=== PATIENT | female | born 1965 | race Caucasian/White ===

== ENCOUNTER → 2020-01-15 12:58 | Outpatient (BNVA) | payer SELFPAY | PROVIDERS: Family Provider Family Medicine; PCP Family Medicine; Visit Provider Otolaryngology | DX: H93.13 Tinnitus, bilateral (principal) | CPT/HCPCS: 99203; 99214 ==

== ENCOUNTER 2020-05-24 10:07 | Outpatient (CLI) | payer OTHER, SELFPAY ==
--- NOTE | 2020-05-24 10:42 | MM_ITS ---
WS: [id number] BILATERAL DIGITAL SCREENING MAMMOGRAPHY WITH CAD CLINICAL INFORMATION: SCREEN HISTORY: Screening mammogram. No current complaints. COMPARISON: August 03, 2017 TECHNIQUE: Bilateral CC and MLO views. FINDINGS: Scattered fibroglandular densities bilaterally. No suspicious focal mass, asymmetry, calcifications, or architectural distortion. No evidence of malignancy. Lucent centered calcifications. Stable asymme tric breast tissue upper outer right breast is unchanged since 2014 MM/[place] [id number] IMPRESSION: BI-RADS: 2-Benign FOLLOW UP: 1 Year Follow-up Recommend return to annual screening mammography.
== END 2020-05-24 10:08 | disposition home or self-care (01) ==
LOC: RADSHAW 10:16
PROVIDERS: PCP Nurse Practitioner Family; Visit Provider Family Medicine
DX: Z12.31 Encounter for screening mammogram for malignant neoplasm of breast (principal)
CPT/HCPCS: 77067

== ENCOUNTER → 2021-02-13 10:04 | Outpatient (BNVA) | payer OTHER, SELFPAY | PROVIDERS: PCP Nurse Practitioner Family; Visit Provider Family Medicine | DX: R30.0 Dysuria (principal); R32 Unspecified urinary incontinence; N81.10 Cystocele, unspecified; R39.9 Unspecified symptoms and signs involving the genitourinary system; M99.01 Segmental and somatic dysfunction of cervical region | CPT/HCPCS: 81000 ==

== ENCOUNTER → 2021-03-12 13:29 | Outpatient (BNVA) | payer OTHER, SELFPAY | PROVIDERS: PCP Nurse Practitioner Family; Visit Provider Obstetrics & Gynecology | DX: R32 Unspecified urinary incontinence (principal); Z20.822 Contact with and (suspected) exposure to COVID-19 | CPT/HCPCS: 87635 ==

== ENCOUNTER 2021-03-18 11:25 | Observation (INO) | payer OTHER, SELFPAY ==
[2021-03-12 12:13] VITALS: BMI 31.6
[2021-03-12 12:35] LABS: Basophils # 0.1 10^3/uL (0.0-0.1); Basophils % 1.2 %; Eosinophils # 0.4 10^3/uL (0.0-0.8); Hematocrit 38.7 % (37.0-47.0); Hemoglobin 12.8 g/dL (11.5-15.3); Lymphocytes # 3.7 10^3/uL (0.8-4.8); Lymphocytes % 43.2 %; Mean Corpuscular HGB Conc 33.1 g/dL (30.0-36.0); Mean Corpuscular Hemoglobin 31.1 pg (28.0-34.0); Mean Corpuscular Volume 94.2 fL (81-99); Mean Platelet Volume 9.3 fL (7.4-10.4); Monocytes # 0.7 10^3/uL (0.2-0.9); Monocytes % 7.7 %; Neutrophils # 3.68 10^3/uL (1.8-7.7); Neutrophils % 42.7 %; Nucleated Red Blood Cells % 0 %; Platelet Count 317 10^3/cmm (130-400); Red Blood Count 4.11 10^6/uL (4.1-5.3); Red Cell Distribution Width 12.5 % (12.1-15.1); White Blood Count 8.6 10^3/uL (4.0-10.0)
--- NOTE | 2021-03-12 12:53 | ANES.PREANE2 ---
Pre-Anesthetic Assessment Pre-Anesthetic Assessment: Height/Weight: Height 1.65 m Weight 86.183 kg Preop Diagnosis: stress incontenence Proposed Procedure: Operation Date: 03/18/21 13:40 Proposed Procedures p Sub urethral sling (76655) n39.3(Not Applicable) - Shiloh Castillo MD Familial anesthetic complications: PONV Social: Social History: No alcohol and No tobacco Exam: Pre-Anes Outpt Exam: alert, oriented x 3, clear to auscultation bilaterally and regular rate & rhythm Airway: Cervical ROM: WNL (ACDF injury ) MP: 1 Dentition: Full Musc/skel: Musc/skel: Lower Back Pain and OA/DJD Anesthetic Plan: ASA status: 2 Anesthesia: General Risk of > 500 ml blood loss (7ml/kg in children): No PFSH Anesthesia PFSH: Medical History Cystocele affecting , antepartum Surgical History History of vaginal hysterectomy Family History Mother Cancer Lung cancer Hyperlipidemia Father Cancer Pancreatic cancer Hyperlipidemia Sister Parathyroid adenoma 2005--age 53 of onset Denies family history of Ovarian cancer Diabetes Ovarian cyst Clotting disorder Chronic kidney disease (CKD) Breast cancer Anesthesia complication Bleeding disorder Hypertension Uterine cancer Stroke Social History (Updated 03/12/21 @ 11:15 by Zunilda Holley LPN) Smoking and tobacco status: never smoked Alcohol intake: current Alcohol intake frequency: few times a week Alcohol type: wine Substance/Drug Use: never Data Anesthesia CBC & Chem 7: 03/12/21 12:20 03/12/21 12:20 Other Labs: Laboratory Results - last 48 hr 03/12/21 12:20 WBC 8.6 RBC 4.11 Hgb 12.8 Hct 38.7 MCV 94.2 MCH 31.1 MCHC 33.1 RDW 12.5 Plt Count 317 MPV 9.3 Neut % (Auto) 42.7 Lymph % (Auto) 43.2 [place] % (Auto) 7.7 Eos % (Auto) 5.0 Baso % (Auto) 1.2 Neut # (Auto) 3.68 Lymph # (Auto) 3.7 [place] # (Auto) 0.7 Eos # (Auto) 0.4 Baso # (Auto) 0.1 Nucleated RBC % (auto) 0 Nucleated RBCs # 0.0 Cardiac Studies: No Data to Display
[2021-03-12 15:35] LABS: Alanine Aminotransferase 19 U/L (0-33); Albumin Level 3.9 g/dL (3.5-5.2); Alkaline Phosphatase 90 IU/L (35-105); Anion Gap 14.1 (5-19); Aspartate Amino Transferase 21 U/L (0-32); Blood Urea Nitrogen 14 mg/dL (6-20); Calcium 8.9 mg/dL (8.5-10.5); Carbon Dioxide 26 mmol/L (22-29); Chloride 101 mmol/L (98-107); Globulin 2.6 g/dL (1.3-4.6); Glomerular Filtration Rate 73.9 mL/min (90-130); Glucose 79 mg/dL (65-115); Osmolality Calculated 283 mOsm/kg (285-295); Potassium 4.1 mmol/L (3.5-5.1); Sodium 137 mmol/L (136-145); Total Bilirubin 0.2 mg/dL (0.15-1.2); Total Protein 6.5 g/dL (6.6-8.7)
[2021-03-18] VITALS (16 sets, daily range): BP systolic 95–139; BP diastolic 61–93; PULSE 55–83; RESP 14–20; TEMP 36.3–36.6; O2SAT 95–100
[2021-03-18] MEDS: sodium chloride 0.9% 1,000 ML 30 ML IV (07:45)
--- NOTE | 2021-03-18 07:45 | P.ANESUD_ITS ---
Pre-Anesthetic Update Pre-Anesthetic Assessment: Date of Surgery/Procedure: 03/18/21 Preop Carla gnosis: stress incontenence Proposed Procedure: Operation Date: 03/18/21 08:40 Proposed Procedures p Sub urethral sling (41639) n39.3(Not Applicable) - Shiloh Castillo MD Any changes to Pre-Anesthetic Assessment?: No Last Intake: Intake Last Liquid Date 03/17/21 Last Liquid Time 20:30 Last Solid Date 03/17/21 Last Solid Time 19:00 Vitals: Temperature 98 F 03/18/21 07:35 Temperature Source Temporal Artery S can 03/18/21 07:35 Pulse Rate 74 03/18/21 07:35 Respiratory Rate 16 03/18/21 07:35 Blood Pressure 139/93 03/18/21 07:35 Blood Pressure Giovana n 108 03/18/21 07:35 Pulse Oximetry 99 03/18/21 07:35 Oxygen Delivery Me thod 03/18/21 07:35 Exam: Pre-Anes Outpt Exam: alert, oriented x 3, clear to auscultation bilaterally and regular rate & rhythm Cardiac Studies: No Data to Display
[2021-03-18] MEDS: scopolamine 1.5 Patch 1 PATCH TRANSDERMA (07:46)
[2021-03-18] MEDS: acetaminophen 1,000 MG/100 ML PIGGYBACK 400 MG IV (07:47)
[2021-03-18] MEDS: gabapentin 300 mg Capsule PO (07:49)
[2021-03-18] MEDS: ketorolac 30 mg/mL INJ IVP ×2 (07:49→17:28)
--- NOTE | 2021-03-18 08:53 | W.PM.OPSUD ---
Surgery/Procedure H&P Update DATE OF PROCEDURE: March 18, 2021 DATE H&P PERFORMED: 03/12/21 H&P UPDATE INFORMATION: I have reviewed H&P completed within last 30 days, I have examined patient prior to procedure and No changes to prior documentation PREOP DIAGNOSIS: stress incontenence PLANNED PROCEDURE: Operation Date: 03/18/21 08:40 Proposed Procedures p Sub urethral sling (30655) n39.3(Not Applicable) - Shiloh Castillo MD
--- NOTE | 2021-03-18 11:06 | P.OP_ITS ---
Operative Report Date of procedure: March 18, 2021 Pre-op Diagnosis: stress incontenence Post-op diagnosis: same Procedure Done: Sub urethral sling Implants: sub-urethral sling Pathology: none sent Anesthesia: General (LMA) Estimated blood loss (mL): 150 IV fluids (mL): 800 Urine output (mL): 400 Complications: post op, sub urethral bleeding Findings: normal bladder and urethra with bilateral spill of indigo carmine Condition: stable Disposition: PACU Procedure: The patient was taken to the operating room where general anesthesia was administered via LMA and found to be adequate. She was prepped and draped in the normal sterile fashion in the dorsal lithotomy position in [facility]. A altamirano catheter was placed. A weighted speculum was placed into the vagina and the [place] retractor placed. An Allis clamp was placed approximately 2 cm below the urethra and another placed approximately 3 cm distal from that. An incision was made between the 2. The tissue was sharply dissected along the pubic ramus bilaterally. The sling was placed on the left first by going through the incision and attaching the sling in the obturator space. The right side was performed in a similar fashion, placing the applicator through the incision and attaching to the obturator space. There was bleeding from the incision. The incision was repaired with 2-0 Vicryl in a running locked fashion. The Altamirano catheter was removed and the cystoscope advanced into the bladder. Th ere was a small amount of blood in the urethra but none in the bladder. Indigo carmine was given and bilateral spill of blue fluid was noted from both ureteral orifices. There was no mesh noted to be in the bladder. The bleeding continued from the urethra and a small trickle. It was coming from the right. I spoke with Dr. Ramirez who recommended using a larger [place] catheter and keeping the patient overnight. This should tamponade the area and stop the bleeding. Vaginal packing was placed as well to aid in this. The patient tolerated the procedure well. Sponge lap and needle counts were correct x3. She was taken to the recovery room in stable condition.
[2021-03-18] MEDS: dextrose 5%-lactated ringers 1,000 ML 125 ML IV ×2 (14:11→22:16)
[2021-03-18] MEDS: HYDROcodone-acetaminophen 5-325 mg Tablet PO (14:17)
--- NOTE | 2021-03-18 14:52 | ANE.PACU2 ---
Inpatient post-anesthesia follow up: Airway intact: Yes Vital signs: Temperature 97.5 F Pulse Rate 83 Respiratory Rate 15 Blood Pressure 116/73 Pulse Oximetry 96 Oxygen Delivery Me thod Room Air Oxygen Flow Rate 6 Fraction of Inspir ed Oxygen Hydration adequate: Yes Nausea and vomiting: No Pain level: 3 Mental status: Baseline
[2021-03-18] MEDS: docusate sodium 100 mg Capsule PO (17:28)
[2021-03-19 04:00] VITALS: BP 99/67; PULSE 84; RESP 16; O2SAT 97
[2021-03-19 04:38] LABS: Hematocrit 34.5 % (37.0-47.0); Hemoglobin 11.2 g/dL (11.5-15.3); Mean Corpuscular HGB Conc 32.5 g/dL (30.0-36.0); Mean Corpuscular Hemoglobin 31.8 pg (28.0-34.0); Mean Platelet Volume 9.5 fL (7.4-10.4); Platelet Count 253 10^3/cmm (130-400); Red Blood Count 3.52 10^6/uL (4.1-5.3); Red Cell Distribution Width 12.6 % (12.1-15.1); White Blood Count 15.4 10^3/uL (4.0-10.0)
--- NOTE | 2021-03-19 08:37 | PM.DCS ---
Discharge Providers Date of Admission: 03/18/21 11:25 Date of Discharge: March 19, 2021 Attending Provider at Admission: Shiloh Castillo MD Attending Provider at Discharge: Shiloh Castillo MD Primary Care Provider: Tonia Carter Diagnoses at Discharge Discharge Diagnosis (1) Postoperative state: Status: Acute Reason for Visit Reason for Visit: Sub urethral sling (26587) Hospital Course Hospital Course The patient was admitted for surgery. She had a suburethral sling placed and had some bleeding from the urethral meatus. She was kept overnight with a 24 italian catheter in and vaginal packing to tamponade the area. On the morning of discharge, she was doing well. She was able to void twice with only small amount of PVR. Her urine was pink with no palmira blood. She was ready for discharge. Physical Exam Narrative: EXAM NARRATIVE: The patient is doing well this am. No complaints of pain. No complaints of vaginal bleeding. Packing and altamirano catheter have been removed. The patient is tolerating a regular diet and ambulating well. Const: COMMON NORMALS: no acute distress, average body habitus, patient oriented x3, no limitations, healthy appearing, alert and well nourished GENERAL APPEARANCE: cooperative, comfortable, well kempt and well developed ORIENTATION/CONSCIOUSNESS: Yes awake, Yes oriented to person, Yes oriented to place and Yes oriented to time Neck/C-Spine: COMMON NORMALS: full ROM and supple Resp: COMMON NORMALS: normal respiratory effort EFFORT & INSPECTION: Yes able to speak in complete sentences GI: COMMON NORMALS: Soft to palpation and non-tender PALPATION: Yes Soft to palpation Extremity: COMMON NORMALS: no clubbing, cyanosis or edema Neuro: COMMON NORMALS: patient oriented x3 SENSORIUM/ORIENTATION: Yes alert, Yes oriented to person, Yes oriented to place and Yes oriented to time Psych: APPEARANCE: Yes well kempt Urinary Catheter Management^: Altamirano: Cath Placed During This Visit: yes, but has since been removed by the nurse Reason for Continuing Indwelling Catheter: Decision to DC Catheter Urinary Catheter Date of Insertion: 03/18/21 Urinary Catheter Time of Insertion: 09:55 Date Urinary Catheter Removed: 03/19/21 Time Urinary Catheter Discontinued: 06:10 Discharge Data Data Completed and Pending: Pending at discharge Category Date Time Status ES surgery / GI i mages Routine Exams 03/18/21 09:24 Ordered Labs from last 24 hours 03/19/21 04:30 WBC 15.4 H RBC 3.52 L Hgb 11.2 L Hct 34.5 L MCV 98.0 MCH 31.8 MCHC 32.5 RDW 12.6 Plt Count 253 MPV 9.5 Vitals: Last Vital Signs Temp 97.5 F L 03/18/21 17:35 Pulse 84 03/19/21 04:00 Resp 16 03/19/21 04:00 BP 99/67 03/19/21 04:00 Pulse Ox 97 03/19/21 04:00 Discharge Plan Discharge Patient Disposition: Home Condition: Stable Prescriptions: Continued fluticasone propionate [Flonase Allergy Relief] 50 mcg/actuation spray,suspension 2 spray INTRANASAL DAILY RF: 0 B Complex Plus Vitamin C [id number] mg capsule 1 cap PO DAILY RF: 0 magnesium 200 mg tablet 200 mg PO DAILY RF: 0 fexofenadine 180 mg tablet 180 mg PO DAILY RF: 0 Adult 50 Plus Probiotic 4 billion cell capsule 4,000 mmu cells PO DAILY RF: 0 cholecalciferol (vitamin D3) 10 mcg (400 unit) capsule 10,000 unit PO DAILY RF: 0 multivitamin Tablet 1 tab PO DAILY RF: 0 cranberry 400 mg capsule 400 mg PO DAILY RF: 0 biotin 10 mg tablet 10 mg PO DAILY RF: 0 tolnaftate [Tolcylen] 1 % solution 2 drp topical BID RF: 0 estradiol 0.1 mg/24 hr patch semiweekly 1 patch topical .TWICE A WEEK Qty: 24 RF: 3 rizatriptan 10 mg tablet 10 mg PO Q2H PRN (Reason: migraine headache) Qty: 48 RF: 11 Discharge Orders: Discharge Order (Routine); Ordered 03/19/21 Ordered By: Shiloh Castillo Patient Instructions: Opioid Safety Discharge Attestations Time Spent in Discharge Care*: less than 30 min Quality Metrics Clinical Quality Measures During this hospital stay, did patient experience: None Coding Level of Care Code Acute Chg FW DC note Diagnoses Postoperative state Z98.890
[2021-03-19 08:45] VITALS: BP 133/83; PULSE 61; RESP 17; TEMP 36.7; O2SAT 98
[2021-03-19] MEDS: acetaminophen 325 mg Tablet 650 MG PO (08:49)
[2021-03-19] MEDS: docusate sodium 100 mg Capsule PO (08:49)
== END 2021-03-19 09:19 | disposition home or self-care (01) ==
LOC: OBGYN 11:25
PROVIDERS: Admitting Provider Obstetrics & Gynecology; PCP Nurse Practitioner Family; Visit Provider Obstetrics & Gynecology
PROC: (CPT 57288; principal; 2021-03-18 08:40)
DX: N39.3 Stress incontinence (female) (male) (principal)
CPT/HCPCS: 57288; 36415; 51798; 80053; 85025; 85027; 96365; 96374; C1713; G0378; J0690; J1100; J1200; J1885; J2405; J2704; J3010; J3490; J7030

== ENCOUNTER 2021-07-02 08:13 | Outpatient (CLI) | payer OTHER, SELFPAY ==
--- NOTE | 2021-07-02 08:21 | MM_ITS ---
WS: [id number] BILATERAL DIGITAL SCREENING MAMMOGRAPHY WITH CAD CLINICAL INFORMATION: SCREENING HISTORY: Screening mammogram. No current complaints. COMPARISON: May 24, 2020 TECHNIQUE: Bilateral CC and MLO views. FINDINGS: Scattered fibroglandular densities bilaterally. Punctate and lucent centered calcifications. No suspi cious focal mass, asymmetry, calcifications, or architectural distortion. No evidence of malignancy. MM/[place] [id number] IMPRESSION: BI-RADS: 2-Benign FOLLOW UP: 1 Year Follow-up Recommend return to annual screening mammography.
== END 2021-07-02 08:14 | disposition home or self-care (01) ==
LOC: RADSHAW 08:16
PROVIDERS: PCP Family Medicine; Visit Provider Family Medicine
DX: Z12.31 Encounter for screening mammogram for malignant neoplasm of breast (principal)
CPT/HCPCS: 77067

== ENCOUNTER → 2021-09-10 10:37 | Outpatient (BNVA) | payer OTHER, SELFPAY | PROVIDERS: PCP Family Medicine; Visit Provider Family Medicine | DX: M16.12 Unilateral primary osteoarthritis, left hip (principal); R35.0 Frequency of micturition | CPT/HCPCS: 73502; 81000 ==

== ENCOUNTER 2022-02-05 08:18 | Outpatient (CLI) | payer OTHER, SELFPAY ==
--- NOTE | 2022-02-05 08:45 | MR_ITS ---
WS: [id number] MRA ANGIOGRAPHY [place] OF [place] HISTORY: I72.9 - Aneurysm of unspecified site COMPARISON: None available. TECHNIQUE: 3-D MR angiography is performed of the [place]. All images are reviewed including source images. Distal RIGHT vertebral artery is dominant. LEFT vertebral artery small caliber but patent. Basilar ar nixon is normal caliber. No aneurysm at the basilar tip. Posterior cerebral arteries are normal calibe r. No aneurysm at the posterior communicating arteries or posterior cerebral arteries. Slightly small caliber intracranial carotid arteries are patent. Distal carotid arteries are intact. Middle cerebral arteries are patent bilaterally. Normal caliber. No aneurysms are identified. The nod ule noted along the RIGHT sylvian fissure on the recent MRI corresponds to a prominent loop of the RI GHT M2 segment but no aneurysm. LEFT middle cerebral arteries normal caliber. Normal anterior cerebra l arteries. No aneurysm at the anterior communicating artery. MR/MR angio head wo con [id number] IMPRESSION: 1. No cerebral aneurysm is identified on today's examination. No prior studies for comparison. If prior studies demonstrating an aneurysm become available a comparison can be performed. 2. Nodule noted within the RIGHT sylvian fissure corresponds to a prominent lo op of RIGHT M2 cerebral artery. No aneurysm is identified at this location.
== END 2022-02-05 08:19 | disposition home or self-care (01) ==
LOC: RAD 08:19
PROVIDERS: PCP Family Medicine; Visit Provider Specialist
DX: I72.9 Aneurysm of unspecified site (principal)
CPT/HCPCS: 70544

== ENCOUNTER 2022-02-05 08:18 | Outpatient (CLI) | payer OTHER, SELFPAY ==
--- NOTE | 2022-02-05 09:00 | MR_ITS ---
WS: [id number] MRI BRAIN WITHOUT CONTRAST HISTORY: I72.9 - Aneurysm of unspecified site COMPARISON: None available. TECHNIQUE: Diffusion imaging, multiplanar T1, T2 and FLAIR imaging obtained. No evidence for acute infarct or hemorrhage. Wynne-white matter differentiation is normal. No remote or acute infarcts are volume loss. Nodular area involving the posterior LEFT cerebellum is of increased signal on the T2 sequence but decreased on T1 and FLAIR sequence. This may be a prior in farct. There is an additional well-circumscribed 6 mm low signal nodule along the RIGHT sylvian fissu re which follows fluid signal on all sequences. Ventricles and extra-axial spaces are normal. No inferior displacement of cerebellar tonsils. No signal abnormality on the dural venous sinuses. No flow voids in the [place]. Paranasal sinuses: Clear. Mastoid air cells: Normal. Calvarium and scalp: Intact. MR/MR head wo con* [id number] IMPRESSION: 1. No acute infarct or hemorrhage. 2. Well-circumscribed 6 mm nodule in the RIGHT sylvian fissure. Cerebral MR an giogram performed on the same day did not demonstrate an aneurysm at this locat ion. This may be prior lacunar infarct versus perivascular space. 3. Focal nodules in the LEFT cerebellum. May be from a prior infarct. Cannot c ompletely exclude vascular malformation. MRI brain with contrast would be helpf ul. If there are prior imaging studies that demonstrate an aneurysm a review can be performed if these become available.
== END 2022-02-05 08:19 | disposition home or self-care (01) ==
LOC: RAD 08:19
PROVIDERS: PCP Family Medicine; Visit Provider Specialist
DX: I72.9 Aneurysm of unspecified site (principal); R22.0 Localized swelling, mass and lump, head
CPT/HCPCS: 70551

== ENCOUNTER → 2022-02-19 10:57 | Outpatient (BNVA) | payer OTHER, SELFPAY | PROVIDERS: PCP Family Medicine; Visit Provider Family Medicine | DX: I67.1 Cerebral aneurysm, nonruptured (principal); G43.711 Chronic migraine without aura, intractable, with status migrainosus; M79.672 Pain in left foot | CPT/HCPCS: 80053; 82310; 84439; 84443; 85025 ==

== ENCOUNTER → 2022-04-29 10:11 | Outpatient (BNVA) | payer OTHER, SELFPAY | PROVIDERS: PCP Family Medicine; Referring Provider Family Medicine; Visit Provider Podiatrist Foot & Ankle Surgery | DX: M79.672 Pain in left foot (principal); M19.072 Primary osteoarthritis, left ankle and foot; Z87.81 Personal history of (healed) traumatic fracture | CPT/HCPCS: 73630 ==

== ENCOUNTER 2022-06-19 06:46 | Day surgery (SDC) | payer OTHER, SELFPAY ==
[2022-06-18 10:25] VITALS: BMI 31.1
[2022-06-19] VITALS (10 sets, daily range): BP systolic 113–141; BP diastolic 72–91; PULSE 67–79; RESP 14–18; TEMP 36.1–36.9; O2SAT 91–97
--- NOTE | 2022-06-19 | SCC_ITS ---
Procedure done: Bunionectomy, Ella osteotomy of the second metatarsal and second hammertoe correction of the left foot. CPT codes: 98384, 35338, 52707 2 seconds of fluoroscopic guidance, for a cumulative dose of 0.05 mGy, was provided to Dr. Wright by the radiology department. C-arm images of the LEFT foot were saved for the patient's permanent record. [facility]
--- NOTE | 2022-06-19 06:12 | P.HPUD_ITS ---
Surgery/Procedure H&P Update DATE OF PROCEDURE: June 19, 2022 DATE H&P PERFORMED: 06/19/22 CHANGES TO PREVIOUS DOCUMENTATION: none PREOP DIAGNOSIS: stress incontenence PRIMARY INDICATION FOR PROCEDURE: Metatarsalgia, predislocation syndrome left second metatarsal phalangeal joint, painful bunion PLANNED PROCEDURE: Operation Date: 06/19/22 08:20 Proposed Procedures p Bunionectomy, Ella osteotomy of the second metatarsal and second hammertoe correction of the left foot. CPT codes: 01748, 39813, 282 85,M21.612,M25.872(Left) - Levar Wright DPM s Ella Osteotomy(Left) - Levar Wright DPM s Hammertoe Correction(Left) - Levar Wright DPM
--- NOTE | 2022-06-19 06:13 | PM.OPSURHP ---
Providers/Chief Complaint Primary Care Provider: Jeremiah Yanez DO History of Present Illness Dee Patton is a 57 year old female patient presenting to clinic for evaluation of left foot pain.? She locates the burning pain across the top of her metatarsals on left foot.? She has a painful bunion and duke hammertoe of the second digit that is painful on a daily basis. She has been experiencing the burning discomfort for almost a year. She denies any trauma or injury to left foot.? She states that she has concerns of her why her second toe is hugging her great toe on left foot.? She states that she has tried taping her second and third together without any success. She states that she has not noticed what causes her foot to hurt more on than other days.? Has tried different styles of shoe, strapping and padding to the foot as well as anti-inflammatories without improvement. Patient denies any subjective nausea, vomiting, fever, chills, shortness of breath or chest pain. Review of Systems General: Reports: 10 or more systems reviewed and unremarkable except in HPI and below Const: Denies: fever(s) or chills Eyes: Denies: change in vision Card: Denies: chest pain or palpitations Resp: Denies: dyspnea or productive cough GI: Denies: abdominal pain, nausea or vomiting : Denies: flank pain Musc: Reports: extremity pain, joint pain, joint stiffness, limited range of motion and deformity Skin/Breast: Reports: skin tenderness; Denies: rash Neuro: Reports: difficulty walking; Denies: numbness in extremities, sensory changes or frequent falls Psych: Denies: suicidal ideation Silvino/Lymph: Denies: easy bruising Medications/Allergies Home Medications Medication Instructions Recorded Confirmed Last Taken Type fluticasone propionate 50 2 spray intranasal DAILY 01/15/20 06/18/22 03/17/21 History mcg/actuation nasal spray,suspension (Flonase Allergy Relief) magnesium 200 mg tablet 200 mg PO DAILY 01/15/20 06/18/22 03/17/21 History biotin 10 mg tablet 10 mg PO DAILY 12/19/20 06/18/22 03/17/21 History cholecalciferol (vitamin D3) 10 10,000 unit PO DAILY 12/19/20 06/18/22 03/17/21 History mcg (400 unit) capsule cranberry 400 mg capsule 400 mg PO DAILY 12/19/20 06/18/22 03/17/21 History lactobacillus combination no.9 4 4,000 mmu cells PO DAILY 12/19/20 06/18/22 03/17/21 History billion cell capsule (Adult 50 Plus Probiotic) multivitamin 1 tab PO DAILY 12/19/20 06/18/22 03/17/21 History rizatriptan 10 mg tablet 10 mg PO Q2H PRN migraine headache 01/12/22 06/18/22 Unknown Rx #48 tabs albuterol sulfate 90 mcg/actuation 2 inh inhalation Q4H PRN shortness 03/31/22 06/18/22 Unknown Rx breath activated powder inhaler of breath or wheezing #1 ea inhalational spacing device #1 ea 03/31/22 06/18/22 Unknown Rx (Aerochamber MV) estradiol 0.1 mg/24 hr semiweekly 1 patch topical .TWICE A WEEK #24 04/30/22 06/18/22 Unknown Rx transdermal patch patches fexofenadine 180 mg tablet 180 mg PO DAILY 06/18/22 06/18/22 Unknown History galcanezumab-gnlm 120 mg/mL 240 mg SUBCUT DIRECTED 06/18/22 06/18/22 06/05/22 History subcutaneous pen injector (Emgality Pen) Allergies Allergy/AdvReac Type Severity Reaction Status Date / Time Sulfa (Sulfonamide Allergy fever, Verified 06/18/22 10:23 Antibiotics) vomiting topiramate Allergy red spots, Verified 06/18/22 10:23 hives PFSH PFSH: Medical History (Updated 06/19/22 @ 06:16 by Levar Wright DPM) Aneurysm Arthritis Cystocele affecting , antepartum Degenerative disc disease, cervical FH: cholecystectomy (~2003) Fusion of spine of cervical region Surgical History H/O hernia repair (~1990) H/O thumb surgery right- 2018 left 2019 History of foot surgery 2015- left foot 2019- right foot History of hysteroscopy History of mandibular surgery (~2003) History of vaginal hysterectomy Hx of neck surgery (~2019) Joint replaced BILATERAL THUMB Family History (Updated 04/30/22 @ 08:25 by Ariela Bruce) Mother Cancer Lung cancer Hyperlipidemia Father Cancer Pancreatic cancer Hyperlipidemia Sister Thyroid disease Denies family history of Ovarian cancer Diabetes Breast cancer Hypertension Uterine cancer Stroke Social History Smoking and tobacco status: never smoked Alcohol intake: current Alcohol intake frequency: few times a week Alcohol type: wine Dietary Habits: Caffeine: Yes Caffeine intake frequency: coffee Number of coffee servings: 1, tea and other (soda) Number of other caffeine servings: 1 Vital Signs Weight: Weight last 48 hrs Weight 193 lb Weight 193 lb Physical Exam Narrative: EXAM NARRATIVE: ?Patient is alert and oriented ?3 and in no acute distress.? The following is a focused bilateral lower extremity exam. VASCULAR: Dorsalis pedis and posterior tibial arteries palpable +2.? Capillary refill time less than 3 seconds to the distal hallux bilaterally. Calf is supple and nontender proximally and distally.? No pedal edema appreciated.? Pedal hair growth present. NEUROLOGICAL: Epicritic and protopathic sensations grossly intact to the lower extremities.? +2 Achilles tendon reflex noted bilaterally.? Negative Tinel sign upon percussion of lower extremity nerves. DERMATOLOGICAL: Lower extremity skin is well-hydrated, normal texture and turgor.? There are no open sores or lesions noted to the lower extremities.? No erythema or ecchymosis present to the bilateral legs and feet. MUSCULOSKELETAL: Left second toe deviates medially and is slightly dorsiflexed at the metatarsophalangeal joint this is reducible.? Bunion deformity to the left great toe that is not track bound. No palpable mass along the course of the plantar fascia appreciated.? Pain to palpation at the left bunion deformity at the medial aspect of the first metatarsal phalangeal joint at the osseous prominence. Pain at the left second metatarsal phalangeal joint both dorsally and plantarly, plantarly is more painful. Deviation medially of the left second toe and mild hammertoe contracture in the sagittal plane with pain with anterior drawer of the second toe. No pain to palpation along the course of the bilateral Achilles tendon.? No pain to palpation along the course posterior tibial tendon or peroneal tendons.? No pain with catv-eu-lucs compression of calcaneus, bilaterally.? Muscle strength is 5/5 in all 3 cardinal planes pain-free without guarding to the foot and ankle, bilaterally.? CARDIOVASCULAR: S1, S2, normal rate, normal rhythm. Dorsalis pedis and posterior tibial arteries palpable. LUNGS: Clear to auscltation, no use of acessory muscles, no crackles or wheezes. 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 Has failed conservative measures consisting of strapping, splinting, shoe gear modification, activity modification and anti-inflammatories. Pain is described as sharp stabbing and occurs on a daily basis it is now affecting her everyday quality of life would like to discuss surgical intervention. Recommended bunionectomy with Ella osteotomy of the second metatarsal, plantar plate repair and second hammertoe correction. Risks include but are not limited to pain, bleeding, numbness, infection, hardware failure, delayed union, malunion, nonunion, hallux varus, recurrence of deformity, failure to correct deformity, chronic swelling, chronic numbness, bruising, surgical site dehiscence, suture abscess, sesamoiditis, altered mechanics, need for further surgical intervention, deep vein thrombosis, heart attack, stroke and . Patient would like to schedule outpatient surgery on 06/19/2022. 06/19/2022 left foot bunionectomy, second metatarsal Ella osteotomy, second MTPJ plantar plate repair and hammertoe correction of the second, all left foot. 120 minutes, gurney, supine. 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
--- NOTE | 2022-06-19 06:23 | XR_ITS ---
WS: [id number] Left foot, 3 views, 06/19/2022 Clinical Data: Postoperative Comparison: Left foot, 04/29/2022. Findings: The patient has had osteotomies of the distal left first and second metatarsals. Orthopedic screws ar e in the surgical locations. There is a healed fracture of the distal left fifth metatarsal. XR/XR foot LT min 3V* [id number] Impression: Osteotomies of the left first and second metatarsals.
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
[2022-06-19] MEDS: CELEcoxib 200 mg Capsule 400 MG PO (07:15)
[2022-06-19] MEDS: gabapentin 300 mg Capsule PO (07:15)
--- NOTE | 2022-06-19 07:24 | P.ANESASSM_ITS ---
Pre-Anesthetic Assessment Height/Weight: Height 1.68 m Weight 87.543 kg Temp Pulse Resp BP Pulse Ox O2 Del Method 97.2 F L 72 16 141/86 97 06/19/22 07:14 06/19/22 07:14 06/19/22 07:14 06/19/22 07:14 06/19/22 07:14 06/19/22 07:14 Preop Diagnosis: Bunion, second hammertoe, second plantar plate insufficiency, all left foot Operation Date: 06/19/22 08:20 Proposed Procedures p Bunionectomy, Ella osteotomy of the second metatarsal and second hammertoe correction of the left foot. CPT codes: 81054, 11869, 59737 ,M21.612,M25.872(Left) - JU Hubbard Ella Osteotomy(Left) - JU Hubbard Hammertoe Correction(Left) - Levar Wright DPM Familial anesthetic complications: None Was Beta Doreen taken within 24 hours: N/A Was Clonidine taken within 24 hours: N/A Last intake: Intake Last Liquid Date 06/18/22 Last Liquid Time 21:00 Last Solid Date 06/18/22 Last Solid Time 21:00 Social No alcohol and No tobacco Exam alert, oriented x 3, clear to auscultation bilaterally and regular rate & rhythm Airway Submandibular: within normal limits Cervical ROM: within normal limits Mallampati: Class II Dentition: full Metabolic Morbid Obesity Neuropsych Headache Anesthetic Plan ASA status: 2 Anesthesia: MAC Medications/Allergies Home Medications Medication Instructions Recorded Confirmed Last Taken Type fluticasone propionate 50 2 spray intranasal DAILY 01/15/20 06/19/22 06/19/22 06:00 History mcg/actuation nasal spray,suspension (Flonase Allergy Relief) magnesium 200 mg tablet 200 mg PO DAILY 01/15/20 06/18/22 03/17/21 History biotin 10 mg tablet 10 mg PO DAILY 12/19/20 06/18/22 03/17/21 History cholecalciferol (vitamin D3) 10 10,000 unit PO DAILY 12/19/20 06/18/22 03/17/21 History mcg (400 unit) capsule cranberry 400 mg capsule 400 mg PO DAILY 12/19/20 06/18/22 03/17/21 History lactobacillus combination no.9 4 4,000 mmu cells PO DAILY 12/19/20 06/18/22 03/17/21 History billion cell capsule (Adult 50 Plus Probiotic) multivitamin 1 tab PO DAILY 12/19/20 06/18/22 03/17/21 History rizatriptan 10 mg tablet 10 mg PO Q2H PRN migraine headache 01/12/22 06/18/22 Unknown Rx #48 tabs albuterol sulfate 90 mcg/actuation 2 inh inhalation Q4H PRN shortness 03/31/22 06/18/22 Unknown Rx breath activated powder inhaler of breath or wheezing #1 ea inhalational spacing device #1 ea 03/31/22 06/18/22 Unknown Rx (Aerochamber MV) estradiol 0.1 mg/24 hr semiweekly 1 patch topical .TWICE A WEEK #24 04/30/22 06/18/22 Unknown Rx transdermal patch patches fexofenadine 180 mg tablet 180 mg PO DAILY 06/18/22 06/18/22 Unknown History galcanezumab-gnlm 120 mg/mL 240 mg SUBCUT DIRECTED 06/18/22 06/18/22 06/05/22 History subcutaneous pen injector (Emgality Pen) hydrocodone 10 mg-acetaminophen 1 tab PO Q6H PRN pain 7 days #28 06/19/22 Unknown Rx 325 mg tablet tabs Allergies Allergy/AdvReac Type Severity Reaction Status Date / Time Sulfa (Sulfonamide Allergy fever, Verified 06/18/22 10:23 Antibiotics) vomiting topiramate Allergy red spots, Verified 06/18/22 10:23 hives [facility] Anesthesia Medical History (Updated 06/19/22 @ 06:16 by Levar Wright DPM) Aneurysm Arthritis Cystocele affecting , antepartum Degenerative disc disease, cervical FH: cholecystectomy (~2003) Fusion of spine of cervical region Surgical History (Updated 06/19/22 @ 06:21 by Levar Wright DPM) H/O hernia repair (~1990) H/O thumb surgery right- 2018 left 2019 History of foot surgery 2015- left foot 2019- right foot History of hysteroscopy History of mandibular surgery (~2003) History of vaginal hysterectomy Hx of neck surgery (~2019) Joint replaced BILATERAL THUMB Family History (Updated 04/30/22 @ 08:25 by Ariela Bruce) Mother Cancer Lung cancer Hyperlipidemia Father Cancer Pancreatic cancer Hyperlipidemia Sister Thyroid disease Denies family history of Ovarian cancer Diabetes Breast cancer Hypertension Uterine cancer Stroke Social History Smoking and tobacco status: never smoked Alcohol intake: current Alcohol intake frequency: few times a week Alcohol type: wine Data Anesthesia Cardiac Studies: No Data to Display
[2022-06-19] MEDS: sodium chloride 0.9% 1,000 ML 30 ML IV (07:57)
[2022-06-19] MEDS: ceFAZolin 2,000 MG in sodium chloride 0.9% (plus) 50 ML 100 MG IV (08:13)
[2022-06-19] MEDS: HYDROcodone-acetaminophen 10-325 mg Tablet 1 TAB PO (10:31)
--- NOTE | 2022-06-19 14:56 | ANE.PACU2 ---
Inpatient post-anesthesia follow up: Airway intact: Yes Vital signs: Temperature 97.0 F Pulse Rate 70 Respiratory Rate 16 Blood Pressure 127/85 Pulse Oximetry 95 Oxygen Delivery Me thod Room Air Oxygen Flow Rate 6 Fraction of Inspir ed Oxygen Hydration adequate: Yes Nausea and vomiting: No Pain level: 2 Mental status: Baseline
== END 2022-06-19 11:26 | disposition home or self-care (01) ==
PROVIDERS: PCP Family Medicine; Visit Provider Podiatrist Foot & Ankle Surgery
PROC: (CPT 28296; principal; 2022-06-19 08:20)
PROC: (CPT 28308; 2022-06-19 08:20)
PROC: (CPT 28285; 2022-06-19 08:20)
DX: M21.612 Bunion of left foot (principal); M25.872 Other specified joint disorders, left ankle and foot; M20.42 Other hammer toe(s) (acquired), left foot; E66.01 Morbid (severe) obesity due to excess calories; Z68.31 Body mass index [BMI] 31.0-31.9, adult; M19.90 Unspecified osteoarthritis, unspecified site; Z98.1 Arthrodesis status
CPT/HCPCS: 28285; 28296; 28308; 73630; 76000; C1713; C9290; J2704; J3010; J3490; J7030

== ENCOUNTER → 2022-07-02 14:43 | Outpatient (BNVA) | payer OTHER, SELFPAY | PROVIDERS: PCP Family Medicine; Visit Provider Podiatrist Foot & Ankle Surgery | DX: Z98.890 Other specified postprocedural states (principal) | CPT/HCPCS: 73630 ==

== ENCOUNTER 2022-07-02 16:00 | Outpatient (CLI) | payer OTHER, SELFPAY | END 2022-07-02 16:01 | disposition home or self-care (01) | LOC: SPT 16:01 | PROVIDERS: PCP Family Medicine; Visit Provider Podiatrist Foot & Ankle Surgery | DX: Z47.89 Encounter for other orthopedic aftercare (principal) | CPT/HCPCS: 97760; L3100 ==

== ENCOUNTER → 2022-07-16 15:09 | Outpatient (BNVA) | payer OTHER, SELFPAY | PROVIDERS: PCP Family Medicine; Visit Provider Podiatrist Foot & Ankle Surgery | DX: Z98.890 Other specified postprocedural states (principal) | CPT/HCPCS: 73630 ==

== ENCOUNTER → 2022-07-30 13:15 | Outpatient (BNVA) | payer OTHER, SELFPAY | PROVIDERS: PCP Family Medicine; Visit Provider Podiatrist Foot & Ankle Surgery | DX: Z98.890 Other specified postprocedural states (principal) | CPT/HCPCS: 73630 ==

== ENCOUNTER → 2022-09-03 13:34 | Outpatient (BNVA) | payer OTHER, SELFPAY | PROVIDERS: PCP Family Medicine; Visit Provider Podiatrist Foot & Ankle Surgery | DX: Z98.890 Other specified postprocedural states (principal); M20.42 Other hammer toe(s) (acquired), left foot | CPT/HCPCS: 73630 ==

== ENCOUNTER → 2023-06-30 13:06 | Outpatient (BNVA) | payer OTHER, SELFPAY | PROVIDERS: PCP Family Medicine; Visit Provider Family Medicine | DX: Z01.419 Encounter for gynecological examination (general) (routine) without abnormal findings (principal); I67.1 Cerebral aneurysm, nonruptured; G43.711 Chronic migraine without aura, intractable, with status migrainosus | CPT/HCPCS: 80053; 80061; 84439; 84443; 85025 ==

== ENCOUNTER 2023-07-15 11:14 | Emergency (ER) | payer OTHER, SELFPAY ==
[2023-07-15 11:24] VITALS: BP 192/98; PULSE 54; RESP 18; TEMP 36.8; O2SAT 100
--- NOTE | 2023-07-15 11:33 | XR_ITS ---
WS: [id number] Exam: XR hand LT min 3V* [id number] Date/Time of Exam: 07/15/2023 11:43 AM Reason For Exam: injury No acute fracture or dislocation. There is almost complete absence of the greater multangular which m ay be secondary to prior surgery or bony resorption. Mild degenerative changes in the IP joints. IMPRESSION: 1. No acute fracture. Degenerative changes.
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
--- NOTE | 2023-07-15 11:33 | XR_ITS ---
WS: [email or web address] Exam: XR wrist LT min 3V* [id number] Date/Time of Exam: 07/15/2023 11:43 AM Reason For Exam: injury No acute fracture or dislocation. Mild degenerative change of the radiocarpal joint. There is either surgical absence or resorption of the greater multangular. Unremarkable soft tissues. IMPRESSION: 1. No wrist fracture or other significant finding.
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
[2023-07-15 11:44] VITALS: BP 192/98; PULSE 60; RESP 18; O2SAT 100
== END 2023-07-15 12:53 | disposition home or self-care (01) ==
PROVIDERS: Emergency Provider Emergency Medicine; PCP Family Medicine
DX: S09.8XXA Other specified injuries of head, initial encounter (principal); S63.502A Unspecified sprain of left wrist, initial encounter; V89.2XXA Person injured in unspecified motor-vehicle accident, traffic, initial encounter
CPT/HCPCS: 70450; 72125; 73110; 73130; 99284

== ENCOUNTER 2023-09-29 09:21 | Outpatient (CLI) | payer OTHER, SELFPAY ==
--- NOTE | 2023-09-29 09:25 | MM_ITS ---
WS: [id number] Bilateral screening 3D tomosynthesis digital mammogram, 09/29/2023 Clinical Data: SCREENING Comparison: 06/14/2022, 07/02/2021, 05/04/2020, 08/03/2017, 06/10/2016, 02/15/2015, 02/01/2015, 10/14/2006. Findings: The breast parenchymal pattern shows fibroglandular tissue. No spiculated masses or clustered calcifi cations are seen. There are no secondary signs of carcinoma. Impression: 1. Negative bilateral mammogram unchanged. 2. Recommend annual screening mammograms. MM/[place] [id number] BIRADS: 1-Negative FOLLOW UP: 1 Year Follow-up The CAD store clerk checker was used.
== END 2023-09-29 09:22 | disposition home or self-care (01) ==
LOC: RAD 09:21
PROVIDERS: PCP Family Medicine; Visit Provider Family Medicine
DX: Z12.31 Encounter for screening mammogram for malignant neoplasm of breast (principal)
CPT/HCPCS: 77063; 77067

== ENCOUNTER → 2023-09-30 09:48 | Outpatient (BNVA) | payer OTHER, SELFPAY | PROVIDERS: PCP Family Medicine; Visit Provider Emergency Medicine | DX: R30.9 Painful micturition, unspecified (principal); N30.01 Acute cystitis with hematuria | CPT/HCPCS: 81003; 87077; 87086; 87184 ==

== ENCOUNTER → 2024-07-13 08:06 | Outpatient (BNVA) | payer OTHER, SELFPAY | PROVIDERS: PCP Family Medicine; Visit Provider Family Medicine | DX: E55.9 Vitamin D deficiency, unspecified (principal); E78.5 Hyperlipidemia, unspecified; K21.9 Gastro-esophageal reflux disease without esophagitis; G43.009 Migraine without aura, not intractable, without status migrainosus; R79.89 Other specified abnormal findings of blood chemistry | CPT/HCPCS: 80053; 80061; 82306; 82607; 84443; 85025 ==

== ENCOUNTER 2024-10-06 10:16 | Outpatient (CLI) | payer OTHER, SELFPAY ==
--- NOTE | 2024-10-06 10:22 | MM_ITS ---
WS: [id number] BILATERAL SCREENING DIGITAL TOMOSYNTHESIS MAMMOGRAM WITH CAD HISTORY: SCREENING COMPARISON: 09/29/2023, 07/15/2022, 07/02/2021 Bilateral CC and MLO views with tomosynthesis and synthetic mammography submitted. Computer aided det ection analyzed. Breast composition: There are scattered areas of fibroglandular density. No suspicious masses, microc alcifications or architectural distortion. Focal asymmetry in the anterior RIGHT breast subareolar lo cation measures 10 x 5 mm. This is best seen on the CC projection. This asymmetry appears more promin ent than on prior studies. Long-term stability of an asymmetry in the central LEFT breast. MM/MM scr BI tomosynthesis [id number] IMPRESSION: BI-RADS: 0 - Incomplete: Need additional imaging evaluation. FOLLOW UP: Need Additional Imaging RIGHT breast: Spot compression views (CC and MLO). True ML. Ultrasound to follo w if abnormality persists.
== END 2024-10-06 10:17 | disposition home or self-care (01) ==
LOC: RAD 10:18
PROVIDERS: PCP Family Medicine; Visit Provider Family Medicine
DX: Z12.31 Encounter for screening mammogram for malignant neoplasm of breast (principal); R92.323 Mammographic fibroglandular density, bilateral breasts; N64.89 Other specified disorders of breast
CPT/HCPCS: 77063; 77067

== ENCOUNTER → 2024-10-12 09:15 | Outpatient (BNVA) | payer OTHER, SELFPAY | PROVIDERS: PCP Family Medicine; Visit Provider Nurse Practitioner Family | DX: R35.0 Frequency of micturition (principal) | CPT/HCPCS: 81000; 87077; 87086; 87184 ==

== ENCOUNTER 2024-11-20 09:06 | Outpatient (CLI) | payer BC, SELFPAY ==
--- NOTE | 2024-11-20 09:09 | US_ITS ---
WS: [id number] ADDITIONAL VIEWS RIGHT MAMMOGRAM WITH DIGITAL BREAST TOMOSYNTHESIS. RIGHT BREAST ULTRASOUND HISTORY: abnormal mammo of right breast COMPARISON: 10/06/2024, 09/29/2023, 07/02/2021 RIGHT MAMMOGRAM: Spot compression views and true ML with digital breast tomosynthesis and SM. Breast composition: There are scattered areas of fibroglandular density. Asymmetry posterior to the nipple nearly completely resolves with additional imaging and spot geovanni zaida views over the anterior breast. There is a small residual nodule just lateral to the nipple comp keyla. Benign calcification posteriorly. Ultrasound to follow. RIGHT BREAST ULTRASOUND 2-D and color Doppler imaging submitted. No abnormalities noted in the RIGHT retroareolar region. There is no shadowing or mass. US/US breast RT limited* [id number] IMPRESSION: BI-RADS: 2 - Benign. FOLLOW UP: 1 Year Follow-up No persistent abnormality is noted on mammography or ultrasound in the retroare olar region.
--- NOTE | 2024-11-20 09:30 | MM_ITS ---
WS: [id number] ADDITIONAL VIEWS RIGHT MAMMOGRAM WITH DIGITAL BREAST TOMOSYNTHESIS. RIGHT BREAST ULTRASOUND HISTORY: abnormal mammo of right breast COMPARISON: 10/06/2024, 09/29/2023, 07/02/2021 RIGHT MAMMOGRAM: Spot compression views and true ML with digital breast tomosynthesis and SM. Breast composition: There are scattered areas of fibroglandular density. Asymmetry posterior to the nipple nearly completely resolves with additional imaging and spot geovanni zaida views over the anterior breast. There is a small residual nodule just lateral to the nipple comp keyla. Benign calcification posteriorly. Ultrasound to follow. RIGHT BREAST ULTRASOUND 2-D and color Doppler imaging submitted. No abnormalities noted in the RIGHT retroareolar region. There is no shadowing or mass. MM/MM diag RT tomosynthesis [id number] IMPRESSION: BI-RADS: 2 - Benign. FOLLOW UP: 1 Year Follow-up No persistent abnormality is noted on mammography or ultrasound in the retroare olar region.
== END 2024-11-20 09:07 | disposition home or self-care (01) ==
LOC: RAD 09:07
PROVIDERS: PCP Family Medicine; Visit Provider Family Medicine
DX: R92.8 Other abnormal and inconclusive findings on diagnostic imaging of breast (principal); R92.321 Mammographic fibroglandular density, right breast; R92.1 Mammographic calcification found on diagnostic imaging of breast; N63.10 Unspecified lump in the right breast, unspecified quadrant
CPT/HCPCS: 76642; 77061; G0279

== ENCOUNTER → 2025-03-29 10:33 | Outpatient (BNVA) | payer BC, SELFPAY | PROVIDERS: PCP Family Medicine; Visit Provider Family Medicine | DX: R10.9 Unspecified abdominal pain (principal) | CPT/HCPCS: 80053; 81000; 82306; 85027 ==

== ENCOUNTER 2025-04-12 11:57 | Outpatient (CLI) | payer BC, SELFPAY ==
--- NOTE | 2025-04-12 12:15 | US_ITS ---
WS: [id number] Bilateral renal ultrasound, 04/12/2025 Clinical Data: R10.9 - Unspecified abdominal pain Comparison: None. Findings: The right kidney measures 10.8 cm x 5.8 cm x 5.3 cm and the left kidney is 9.6 cm x 5.2 cm x 5.1 cm. There is a right intrarenal cyst with greatest diameter of 3.1 cm. No masses or hydronephrosis or seen. The renal cortical margin is normal. No renal calculi are seen. The abdominal aorta and inferior vena cava show no vascular abnormalities. The bladder was scanned and was not remarkable. US/US renal BI* [id number] Impression: 1. Negative bilateral renal ultrasound with incidental small right intrarenal c yst. 2. Bladder appears normal but patient voided before examination.
== END 2025-04-12 11:58 | disposition home or self-care (01) ==
PROVIDERS: PCP Family Medicine; Visit Provider Family Medicine
DX: R10.9 Unspecified abdominal pain (principal); R30.0 Dysuria; N30.01 Acute cystitis with hematuria; N28.1 Cyst of kidney, acquired
CPT/HCPCS: 76770